=== PATIENT | male | born 1995 | race African-American/Black ===

== ENCOUNTER 2017-04-12 14:02 | Emergency (ER) | payer OTHER ==
[~2017-04-12] VITALS: Ht 157.5 cm; Wt 56.0 kg
[2017-04-12 14:05] VITALS: Ht 157.5 cm; Wt 56.0 kg
[2017-04-12 14:50] LABS: ABNORMAL IP MESSAGE 1; HEMATOCRIT 42.6 % (42.0-52.0); HEMOGLOBIN 15.2 g/dl (14.0-18.0); MEAN CORPUSCULAR HGB CONC 35.7 g/dl (32.0-37.0); MEAN CORPUSCULAR VOLUME 89.7 fl (72.0-104.0); MEAN PLATELET VOLUME 11.3 fl (7.4-10.4); PLATELET COUNT 155 10^3/UL (140-415); POSITIVE DIFF @See below; RED BLOOD COUNT 4.75 10^6/ul (4.70-6.10); RED CELL DISTRIBUTION WIDTH 12.4 % (11.5-14.5); WHITE BLOOD COUNT 7.7 10^3/ul (4.8-10.8)
--- NOTE | 2017-04-12 15:00 | ERD ---
ER Documentation Chief Complaint Date/Time DATE: 04/12/17 TIME: 14:56 Chief Complaint flu like symptoms, body aches, chills, weak HPI ` This is a 21-year-old male presenting to emergency department with body aches , fatigue and generalized weakness 2 days. Patient states he developed symptoms yesterday and symptoms worsened this morning. No fevers or chills. No abdominal pain, back pain or chest pain. No nausea, vomiting or diarrhea. No cough, sore throat or nasal congestion. Patient denies any recent URI or influenza. No shortness breath or difficult to breathing. Denies alcohol, tobacco or drug use. ROS All systems reviewed and are negative except as per history of present illness. PMhx/Soc Medical and Surgical Hx: pt denies Medical Hx, pt denies Surgical Hx Hx Alcohol Use: No Hx Substance Use: No Hx Tobacco Use: No Smoking Status: Former smoker Physical Exam Vitals Vital Signs Date Time Temp Pulse Resp B/P Pulse Ox O2 Delivery O2 Flow Rate FiO2 04/12/17 14:05 99.2 98 18 125/77 99 Physical Exam Const: No acute distress, alert Head: Atraumatic Eyes: Normal Conjunctiva ENT: Normal External Ears, Nose and Mouth. Neck: Full range of motion..~ No meningismus. Resp: Clear to auscultation bilaterally. No wheezing, rhonchi or crackles. No stridor or labored breathing. Patient is talking in complete sentences. Cardio: Regular rate and rhythm, no murmurs Abd: Soft, non tender, non distended. Normal bowel sounds Skin: No petechiae or rashes Back: No midline or flank tenderness Ext: No cyanosis, or edema Neur: Awake and alert Psych: Normal Mood and Affect Result Diagram: 04/12/17 1443 04/12/17 1443 Results 24 hrs Laboratory Tests Test 04/12/17 14:43 04/12/17 14:50 White Blood Count 7.710^3/ul Red Blood Count 4.7510^6/ul Hemoglobin 15.2g/dl Hematocrit 42.6% Mean Corpuscular Volume 89.7fl Mean Corpuscular Hemoglobin 32.0pg Mean Corpuscular Hemoglobin Concent 35.7g/dl Red Cell Distribution Width 12.4% Platelet Count 13866^3/UL Mean Platelet Volume 11.3fl Neutrophils % % Segmented Neutrophils % (Manual) 67% Lymphocytes % % Lymphocytes % (Manual) 11% Monocytes % % Monocytes % (Manual) 22% Eosinophils % % Basophils % % Nucleated Red Blood Cells % 0.0/100WBC Neutrophils # 10^3/ul Absolute Lymphocytes (Manual) 0.810^3/ul Lymphocytes # 10^3/ul Monocytes # 10^3/ul Absolute Monocytes (Manual) 1.610^3/ul Eosinophils # 10^3/ul Basophils # 10^3/ul Nucleated Red Blood Cells # 10^3/ul Smudge Cells % 4% Thrombocytosis 4% Platelet Estimate NORMAL Sodium Level 142mmol/L Potassium Level 3.8mmol/L Chloride Level 102mmol/L Carbon Dioxide Level 26mmol/L Anion Gap 18 Blood Urea Nitrogen 14mg/dl Creatinine 0.97mg/dl Glucose Level 84mg/dl Calcium Level 9.5mg/dl Urine Color YELLOW Urine Clarity CLEAR Urine pH 6.0 Urine Specific [place] 1.017 Urine Ketones NEGATIVEmg/dL Urine Nitrite NEGATIVEmg/dL Urine Bilirubin NEGATIVEmg/dL Urine Urobilinogen NEGATIVEmg/dL Urine Leukocyte Esterase NEGATIVELeu/ul Urine Microscopic RBC 2/HPF Urine Microscopic WBC 1/HPF Urine Mucus FEW/HPF Urine Hemoglobin 1+mg/dL Urine Glucose NEGATIVEmg/dL Urine Total Protein NEGATIVEmg/dl Current Medications Medications (Trade) Dose Ordered Sig/Haile Route PRN Reason Start Time Stop Time Status Last Admin Dose Admin Ibuprofen (Motrin) 400 mg ONCE ONCE PO 04/12/17 16:00 04/12/17 16:01 DC 04/12/17 15:42 Procedures/MDM [place] [address] Rad[address] Main Line: [phone] DIAGNOSTIC IMAGING REPORT Patient: MAHAMED REED : 1995 Age: 21 Sex: M MR #: [id number] DOS: 04/12/17 1434 Ordering MD: TAVO FUNEZ NP Location: [facility] Room/Bed: PROCEDURE: XR Chest. CLINICAL INDICATION: Flu-like symptoms TECHNIQUE: AP view of the chest was performed. COMPARISON: None. FINDINGS: The lungs are clear. The lung volumes are normal. The heart size is normal. The osseous structures are intact. IMPRESSION: No radiographic evidence for acute cardiopulmonary disease EKG: As interpreted by myself and Dr. Chowdary Rate/Rhythm: Normal sinus rhythm with sinus arrhythmia with heart rate 90 bpm QRS, ST, T-waves: No changes consistent w/ acute ischemia Impression: No evidence of ischemia or arrhythmia MDM: This is a 21-year-old male presenting to the emergency department with body aches, fatigue and generalized weakness 2 days. No headaches, visual changes, nausea, vomiting, diarrhea, abdominal pain, back pain or chest pain. No signs or symptoms of respiratory distress. Labs and urine ordered. Labs show no significant anemia or infection. Labs show 4+ "smudge cells" and low lymphocytes. No significant electrolyte imbalance. UA shows 1+ hemoglobin with few mucus otherwise negative. Chest x-ray reviewed by radiologist as no radiographic evidence for acute cardiopulmonary disease.. EKG shows normal sinus rhythm with heart rate 98 bpm. Influenza swab is negative. Discussed these findings with Dr. Chowdary and he suggested having patient follow up outpatient with PCP and patient is stable for discharge home. Vital signs remained stable. Low suspicion for pneumonia, pleural effusion, pneumothorax or acute AK. Differential diagnosis includes but not limited to URI, influenza, otitis media , otitis externa, asthma exacerbation, croup, bronchitis, bronchiolitis and costochondritis. Patient is appropriate for outpatient management. Instructed patient to follow- up with primary care provider or cotton stomper in the next 2-3 days for reassessment and additional management. Resources provided and discharge paperwork. Return to ED for any high fever, chest pain, difficulty breathing, shortness breath, wheezing, vomiting, diarrhea, abdominal pain or any new or worsening symptoms. Patient verbalizes understanding. All questions answered at discharge. Departure Diagnosis: Primary Impression: Weakness Condition: Stable TAVO FUNEZ NP Apr 12, 2017 15:00
--- NOTE | 2017-04-12 15:01 | RADRPT ---
PROCEDURE: XR Chest. CLINICAL INDICATION: Flu-like symptoms TECHNIQUE: AP view of the chest was performed. COMPARISON: None. FINDINGS: The lungs are clear. The lung volumes are normal. The heart size is normal. The osseous structure s are intact. IMPRESSION: No radiographic evidence for acute cardiopulmonary disease RPTAT: QQ .Yordan Jimenez MD, Date Time Electronically viewed and signed by .Yordan Jimenez MD, on 04/12/2017 15:01 .Johanna/
[2017-04-12 15:07] LABS: ADD UMIC YES; UR ASCORBIC ACID NEGATIVE (NEGATIVE); UR BILIRUBIN (Dip) NEGATIVE (NEGATIVE); UR BLOOD (Dip) 1+ mg/dL (NEGATIVE); UR CLARITY CLEAR (CLEAR); UR COLOR YELLOW (YELLOW); UR GLUCOSE (Dip) NEGATIVE (NEGATIVE); UR KETONES (Dip) NEGATIVE (NEGATIVE); UR LEUKOCYTE ESTERASE (Dip) NEGATIVE Leu/ul (NEGATIVE); UR MUCUS FEW /HPF (NONE SEEN); UR NITRITE (Dip) NEGATIVE (NEGATIVE); UR RBC 2 /HPF (0-5); UR SPECIFIC GRAVITY (Dip) 1.017 (1.003-1.030); UR TOTAL PROTEIN (Dip) NEGATIVE (NEGATIVE); UR UROBILINOGEN (Dip) NEGATIVE (NEGATIVE)
[2017-04-12 15:24] LABS: CALCIUM 9.5 mg/dl (8.4-10.2); CREATININE 0.97 mg/dl (0.61-1.24); POTASSIUM 3.8 mmol/L (3.5-5.1)
[2017-04-12 15:36] LABS: GIANT THROMBO% (M) 4 % (0-0); MONOCYTES % (M) 22 % (0-13); PLATELET ESTIMATE NORMAL
[2017-04-12] MEDS ORDERED: IBUPROFEN 200 MG TAB PO ONE (16:00)
== END 2017-04-12 16:32 | disposition home or self-care (01) ==
LOC: FTE 14:02
DX: R53.1 Weakness (principal); Z87.891 Personal history of nicotine dependence
CPT/HCPCS: 71010; 80048; 81001; 85025; 87400; 93005; Z7502; Z7610